=== PATIENT | female | born 1995 | race Caucasian/White ===

== ENCOUNTER 2020-03-06 10:43 | Inpatient (IN) | payer BC ==
[2020-03-06 11:40] LABS: APPEARANCE,URINE SLIGHTLY-CLOUDY; BILIRUBIN,URINE NEGATIVE (NEGATIVE); COLOR,URINE YELLOW; GLUCOSE, URINE NEGATIVE (NEGATIVE); KETONES,URINE NEGATIVE (NEGATIVE); LEUKOCYTE ESTERASE,URINE SMALL (NEGATIVE); NITRITE,URINE NEGATIVE (NEGATIVE); PROTEIN,URINE 100 mg/dL (NEGATIVE); URINE SPECIFIC GRAVITY 1.016; UROBILINOGEN,URINE NEGATIVE mg/dL (<2.0)
[2020-03-06 12:12] LABS: URINE PROTEIN 17.8 mg/dL (<12)
[2020-03-06 12:12] LABS: URINE AMPHETAMINES SCREEN NEGATIVE; URINE BARBITURATES SCREEN NEGATIVE; URINE BENZODIAZEPINES SCREEN NEGATIVE; URINE COCAINE SCREEN NEGATIVE; URINE MARIJUANA (THC) SCREEN NEGATIVE; URINE METHADONE SCREEN NEGATIVE; URINE PHENCYCLIDINE SCREEN NEGATIVE
[2020-03-06 12:14] LABS: 24 HOUR URINE PROTEIN RESULT 420 mg/day (42-225)
[2020-03-06] MEDS ORDERED: OXYTOCIN 10 UNIT/ML VIAL ONE (14:10)
[2020-03-06] MEDS ORDERED: MISOPROSTOL 0.2 MG TABLET ONE (14:10)
[2020-03-06] MEDS ORDERED: LIDOCAINE 1% INJ-PF (10 MG/ML) 30 ML SDV ONE (14:10)
[2020-03-06] MEDS ORDERED: DINOPROSTONE 10 MG VAGINAL INSERT.SR ONE (14:11)
[2020-03-06] MEDS ORDERED: OXYTOCIN/0.9 % SODIUM CHLORIDE 30 UNIT/500 ML RTUINJ ONE (14:11)
[2020-03-06] MEDS ORDERED: DINOPROSTONE 10 MG VAGINAL INSERT.SR PV PRN (14:14)
[2020-03-06] MEDS: RINGERS SOLUTION,LACTATED 1,000 ML IV PRN (14:26)
[2020-03-06 14:54] LABS: ABSOLUTE LYMPHOCYTES (AUTO) 1.6 10^3/uL (0.5-4.7); ABSOLUTE MONOCYTES (AUTO) 0.7 10^3/uL (0.1-1.4); ABSOLUTE NEUT (AUTO) 6.7 10^3/uL (1.7-8.2); BASOPHILS % (AUTO) 0.3 % (0-2); EOSINOPHILS % (AUTO) 0.3 % (0-6); HEMATOCRIT 35.5 % (36.0-47.0); HEMOGLOBIN 12.5 g/dL (12.0-15.5); LYMPHOCYTES % (AUTO) 17.8 % (13-45); MEAN CORPUSCULAR HEMOGLOBIN 31.1 pg (27.0-33.4); MEAN CORPUSCULAR HGB CONC 35.3 g/dL (32.0-36.0); MEAN CORPUSCULAR VOLUME 88 fl (80-97); MONOCYTES % (AUTO) 7.5 % (3-13); PLATELET COUNT 183 10^3/uL (150-450); RED BLOOD COUNT 4.03 10^6/uL (3.72-5.28); RED CELL DISTRIBUTION WIDTH 13.2 % (11.5-14.0); SEGMENTED NEUTROPHILS % (AUTO) 74.1 % (42-78); TOTAL CELLS COUNTED % (AUTO) 100 %; WHITE BLOOD COUNT 9.1 10^3/uL (4.0-10.5)
--- NOTE | 2020-03-06 15:01 | Admission Physical ---
Datetime Report Generated by CPN: 03/06/2020 15:00 CURRENT ADMISSION Hx Assessment: The History has been Reviewed and is Current Chief Complaint: Sent from OB Office for Evaluation and Treatment - Please Specify Indication for Induction: PreEclampsia Admit Impression : Term, Intrauterine ; No Active Labor; Induction of Labor Admit Plan: Initiate Labor Induction Protocol ALLERGIES Medication Allergies: No Medication Allergies: No Known Allergies (03/06/2020) Latex: No Latex Allergies OBSTETRICAL HISTORY EDC: 03/15/2020 00:00 : 1 Para: 0 Term: 0 : 0 SAB: 0 IAB: 0 Ectopic: 0 Livin Cesareans: 0 VBACs: 0 Multiple Births: 0 Gestational Diabetes: No Rh Sensitization: No Incompetent Cervix: No FLAVIO: No Infertility: No ART Treatment: No Uterine Anomaly: No IUGR: No Hx Previous C/S: No Macrosomia: No Hx Loss/Stillborn: No PIH: No Hx : No Placenta Previa/Abruption: No Depression/PP Depression: No PTL/PROM: No Post Hemorrhage: No Current Procedures: Ultrasound SEE RECORDS Alcohol: No Marijuana : No Cocaine: No Other Illicit Drugs: No Cigarettes: Never Smoker. [id number] MEDICAL HISTORY Diabetes: Yes Diabetes Type: Gestational Diabetes Blood Transfusion: No Pulmonary Disease (Asthma, TB): No Breast Disease: No Hypertension: Yes Vice President Of Recruiting Surgery: No Heart Disease: No Hosp/Surgery: No Autoimmune Disorder: No Anesthetic Complications: No Kidney Disease: No Abnormal Pap Smear: No Neuro/Epilepsy: No Psychiatric Disorders: No Other Medical Diseases: No Hepatitis/Liver Disease: No Significant Family History: No Varicosities/Phlebitis: No Trauma/Violence : No Thyroid Dysfunction: No INFECTIOUS HISTORY Gonorrhea: No Genital Herpes: No Chlamydia: No Tuberculosis: No Syphilis: No Hepatitis: No HIV/AIDS Exposure: No Rash or Viral Illness: No HPV: No PHYSICAL EXAM General: Normal Neurologic: Normal Heart: Normal Lungs: Normal Abdomen: Normal Extremities: Normal Pelvic Type: Adequate Vital Signs: Reviewed Details Vital Signs: normal-severe range while in unit VAGINAL EXAM Dilatation: 1 Effacement: 50 Station: -2 Contraction Comments: rare MEMBRANES Membranes: Intact FETUS A EGA: 38.5 Monitoring: External US FHR Category: Category I Presentation: Vertex Admit Comment: 24yo G1 @ 38w5d into L_D for 24h urine return which was resulted and found to be 420g and now meets criteria for IOL secondary to pre-eclampsia. BPs mild to severe range while in unit denies any other s/s of pre-e, except for headache this am. Pt is A pos, Rubella Immune, GBS positive. also complicated by obesity (BMI 34 at NOB), excessive weight gain and gestational diabetes on oral hypoglicemic (glyburide 5mg qhs). Pt with hx of anxiety/depression and on lexapro at this time. Denies h/s ideation. Reviewed with Dr. Cancino who is the OB director of business continuity today who requests IOL with cervidil at this time. PLANS FOR LABOR AND DELIVERY Labor and Delivery: None Pain Management: Epidural Feeding Preference: Breast Benefit of Breast Feed Discussed: Yes Circumcision: N/A INFORMED CONSENT Assignment: Katelyn Cancino MD Signature: with User ID: Jamel : with User ID: [email or web address]
[2020-03-06 16:42] LABS: ALKALINE PHOSPHATASE 125 U/L (38-126); ANION GAP 7 (5-19); ASPARTATE AMINO TRANSFERASE 38 U/L (14-36); BILIRUBIN,DIRECT 0.2 mg/dL (0.0-0.4); BILIRUBIN,TOTAL 0.5 mg/dL (0.2-1.3); BLOOD UREA NITROGEN 8 mg/dL (7-20); CALCIUM 8.9 mg/dL (8.4-10.2); CARBON DIOXIDE 20 mmol/L (22-30); CHLORIDE 106 mmol/L (98-107); GLUCOSE 105 mg/dL (75-110); POTASSIUM 4.2 mmol/L (3.6-5.0); TOTAL PROTEIN 5.6 g/dL (6.3-8.2); URIC ACID 4.7 mg/dL (2.5-6.2)
[2020-03-06] MEDS ORDERED: ZOLPIDEM TARTRATE 5 MG TABLET PO ONE (20:10)
[2020-03-06] MEDS ORDERED: ZOLPIDEM TARTRATE 5 MG TABLET ONE (20:12)
[2020-03-06] MEDS ORDERED: MAG HYDROX/AL HYDROX/SIMETH SUSP 30 ML UDCUP ONE (23:06)
[2020-03-06] MEDS ORDERED: MAG HYDROX/AL HYDROX/SIMETH SUSP 30 ML UDCUP PO ONE (23:07)
[2020-03-07] MEDS ORDERED: PENICILLIN G POTASSIUM 5,000,000 UNIT in DEXTROSE 5%-WATER 100 ML IV ONE (02:00)
[2020-03-07] MEDS ORDERED: PENICILLIN G-K 5 MILLION UNIT VIAL ONE (04:07)
[2020-03-07] MEDS ORDERED: MAG HYDROX/AL HYDROX/SIMETH SUSP 30 ML UDCUP PO PRN (07:45)
[2020-03-07] MEDS ORDERED: MAG HYDROX/AL HYDROX/SIMETH SUSP 30 ML UDCUP ONE (07:47)
[2020-03-07] MEDS: PENICILLIN G POTASSIUM 2,500,000 UNIT in DEXTROSE 5%-WATER 50 ML IV SCH ×5 (09:12→22:14)
[2020-03-07] MEDS ORDERED: PROMETHAZINE HCL INJ 25 MG/1 ML VIAL ONE (09:29)
[2020-03-07] MEDS ORDERED: NALBUPHINE HCL INJ 10 MG/1 ML AMPULE ONE (09:29)
[2020-03-07] MEDS ORDERED: FENTANYL/BUPIVACAINE/NS/PF 300 MCG/150 ML RTUINJ EPI ONE (13:28)
[2020-03-07] MEDS ORDERED: EPHEDRINE SULFATE INJ 50 MG/1 ML AMPULE ONE (13:28)
[2020-03-07] MEDS ORDERED: ROPIVACAINE HCL 0.2% INJ/PF (2 MG/ML) 20 ML SDV ONE (13:28)
[2020-03-07] MEDS: RINGERS SOLUTION,LACTATED 1,000 ML IV PRN (14:45)
[2020-03-07] MEDS ORDERED: LABETALOL HCL INJ 20 MG/4 ML DISP.SYRIN IV ONE ×2 (15:39→15:44)
[2020-03-07] MEDS ORDERED: MAGNESIUM SULFATE INJ 8 MEQ/2 ML IV ONE (15:40)
[2020-03-07] MEDS ORDERED: MAGNESIUM SULFATE PF/INJ 40 MEQ/10 ML SDV IV ONE (15:41)
[2020-03-07] MEDS ORDERED: MAGNESIUM SULFATE 4 GM/100 ML RTUPB IV ONE ×2 (15:44→16:06)
[2020-03-07] MEDS ORDERED: MAGNESIUM SULFATE 0 GM/0 ML RTUINJ IV ONE (15:44)
[2020-03-07] MEDS ORDERED: MAGNESIUM SULFATE 20 GM/500 ML RTUINJ IV PRN (16:06)
[2020-03-07] MEDS ORDERED: FENTANYL CITRATE INJ/PF 100 MCG/2 ML AMPUL ONE (16:10)
[2020-03-07] MEDS ORDERED: LABETALOL HCL 200 MG TABLET ONE (18:14)
[2020-03-07] MEDS: LABETALOL HCL 200 MG TABLET PO SCH (18:17)
[2020-03-07] MEDS ORDERED: MAGNESIUM SULFATE 20 GM/500 ML RTUINJ IV ONE (18:22)
[2020-03-07 18:57] LABS: HEMATOCRIT 35.7 % (36.0-47.0); HEMOGLOBIN 12.4 g/dL (12.0-15.5); MEAN CORPUSCULAR HEMOGLOBIN 30.7 pg (27.0-33.4); MEAN CORPUSCULAR HGB CONC 34.8 g/dL (32.0-36.0); MEAN CORPUSCULAR VOLUME 88 fl (80-97); PLATELET COUNT 177 10^3/uL (150-450); RED BLOOD COUNT 4.05 10^6/uL (3.72-5.28); RED CELL DISTRIBUTION WIDTH 12.9 % (11.5-14.0)
[2020-03-07 19:07] LABS: WHITE BLOOD COUNT 18.3 10^3/uL (4.0-10.5)
[2020-03-07 19:18] LABS: ABSOLUTE LYMPHOCYTES# (MANUAL) 0.4 10^3/uL (0.5-4.7); ABSOLUTE MONOCYTES # (MANUAL) 0.5 10^3/uL (0.1-1.4); BASOPHILS % (MANUAL) 0 % (0-2); EOSINOPHILS % (MANUAL) 0 % (0-6); LYMPHOCYTES % (MANUAL) 2 % (13-45); MONOCYTES % (MANUAL) 3 % (3-13); SEGMENTED NEUTROPHILS % (MAN) 95 % (42-78); TOTAL CELLS COUNTED 100
[2020-03-07 19:19] LABS: ALBUMIN 3.1 g/dL (3.5-5.0); ALKALINE PHOSPHATASE 136 U/L (38-126); ANION GAP 7 (5-19); ASPARTATE AMINO TRANSFERASE 32 U/L (14-36); BILIRUBIN,DIRECT 0.2 mg/dL (0.0-0.4); BILIRUBIN,TOTAL 0.5 mg/dL (0.2-1.3); BLOOD UREA NITROGEN 7 mg/dL (7-20); CALCIUM 8.9 mg/dL (8.4-10.2); CARBON DIOXIDE 20 mmol/L (22-30); CHLORIDE 106 mmol/L (98-107); GLUCOSE 112 mg/dL (75-110); POTASSIUM 4.3 mmol/L (3.6-5.0); TOTAL PROTEIN 5.8 g/dL (6.3-8.2); URIC ACID 4.4 mg/dL (2.5-6.2)
[2020-03-07 19:20] LABS: TEAR DROP CELLS SLIGHT
[2020-03-07 19:21] LABS: PLATELET COMMENT ADEQUATE
[2020-03-07] MEDS ORDERED: CALCIUM CARBONATE 500 MG TAB.CHEW PO ONE (23:10)
[2020-03-08] MEDS ORDERED: LABETALOL HCL 200 MG TABLET ONE ×3 (02:17→19:26)
[2020-03-08] MEDS ORDERED: FENTANYL/BUPIVACAINE/NS/PF 300 MCG/150 ML RTUINJ EPI ONE (02:48)
[2020-03-08] MEDS ORDERED: MAGNESIUM SULFATE 20 GM/500 ML RTUINJ IV ONE (02:55)
[2020-03-08] MEDS ORDERED: OXYTOCIN/0.9 % SODIUM CHLORIDE 30 UNIT/500 ML RTUINJ ONE (03:40)
[2020-03-08] MEDS ORDERED: ACETAMINOPHEN WITH CODEINE #3 TABLET PO ONE (05:07)
[2020-03-08] MEDS ORDERED: METHYLERGONOVINE MALEATE 0.2 MG TABLET ONE ×4 (05:13→23:39)
[2020-03-08] MEDS ORDERED: ACETAMINOPHEN WITH CODEINE #3 TABLET ONE (05:13)
[2020-03-08] MEDS: METHYLERGONOVINE MALEATE 0.2 MG TABLET PO SCH ×4 (05:17→23:43)
--- NOTE | 2020-03-08 05:32 | Birth Certificate Data ---
Cert Data Datetime Report Generated by CPN: 03/08/2020 05:32 CERTIFICATE DATA 47a. Care: Yes (03/06/2020 11:14:Autumn Lawson RN) 47b. Date of First Visit: 07/28/2019 00:00 (03/06/2020 11:14:Autumn Lawson RN) 47c. Date of Last Visit: 03/05/2020 00:00 (03/06/2020 11:14:Autumn Lawson RN) 48a. Number of Prev Live Births: 0 (03/06/2020 11:14:Autumn Lawson RN) 48b. Now Livin (03/06/2020 11:14:Autumn Lawson RN) 48c. Live Births Now : 0 (03/06/2020 11:14: system process) 48e. Losses: 0 (03/06/2020 11:14:Autumn Lawson RN) RISK FACTORS IN THIS 49a. Diabetes: Yes (03/06/2020 11:14:Autumn Lawson RN) Type of Diabetes: Gestational Diabetes (03/06/2020 11:14:Autumn Lawson RN) 49b. Hypertension: Yes (03/06/2020 11:14:Autumn Lawson RN) Type of Hypertension: Gestational (PIH, Pre-eclampsia) (03/06/2020 11:14:Autumn Lawson RN) 49c. Previous Births: 0 (03/06/2020 11:14:Autumn Lawson RN) 49d. Stillborns: No (03/06/2020 11:14:Autumn Lawson RN) 49d. IUGR: No (03/06/2020 11:14:Autumn Lawson RN) 49e. Infertility Treatment: No (03/06/2020 11:14:Autumn Lawson RN) 49f. Previous Cesareans: 0 (03/06/2020 11:14:Autumn Lawson RN) Mother's Height 50b. Height Inches: 67 (03/06/2020 11:06:QS system process) Mother's Weight 51b. Weight at Delivery (lbs): 260 (03/06/2020 11:06:QS system process) Infections Present/Treated 53a. Gonorrhea: No (03/06/2020 11:14:Autumn Lawson RN) Results this Hospital Visit : Negative (03/06/2020 11:14:Autumn Lawson RN) 53b. Syphilis: No (03/06/2020 11:14:Autumn Lawson RN) 53c. Chlamydia: No (03/06/2020 11:14:Autumn Lawson RN) Results this Hospital Visit: Negative (03/06/2020 11:14:Autumn Lawson RN) 53d. Hepatitis B: No (03/06/2020 11:14:Autumn Lawson RN) Results this Hospital Visit: Negative (03/06/2020 11:14:Autumn Lawson RN) 53e. Hepatitis C: Negative (03/06/2020 11:14:Autumn Lawson RN) 53h. Mother Tested for HBsAG: Yes (03/06/2020 11:14:Autumn Lawson RN) 53i. Date Tested: 07/28/2019 00:00 (03/06/2020 11:14:Autumn Lawson RN) 53j. Test Result: Negative (03/06/2020 11:14:Autumn Lawson RN) Obstetric Procedures 54a, b, c. Obstetric Procedures: Ultrasound (03/06/2020 11:14:Autumn Lawson RN) Cigarette Smoking 55a. 3 Months Before Preg - Ci (03/06/2020 11:14:Autumn Lawson RN) 55b. 1st Trimester of Preg- Ci (03/06/2020 11:14:Autumn Lawson RN) 55c. 2nd Trimester of Preg- Ci (03/06/2020 11:14:Autumn Lawson RN) 55d. 3rd Trimester of Preg- Ci (03/06/2020 11:14:Autumn Lawson RN) Onset of Labor 56a. PROM >12 Hrs: 18.47 (03/06/2020 11:14:QS system process) 56b. Precipitous Labor <3 Hrs: 8 (03/06/2020 11:14:QS system process) 56c. Prolonged Labor > 20 Hrs: 8 (03/06/2020 11:14:QS system process) 57a. Induction of Labor: Induction (03/06/2020 11:14:Lucy Pretty RN) 57a. Induction of Labor: Cervidil (03/06/2020 14:27:Jammie Leyva RN) 57c. Non-Vertex Presentation A: Vertex (03/06/2020 11:14:Lucy Pretty RN) 57d. Steroids - Lung Mat: None (03/06/2020 11:14:Lucy Pretty RN) 57d. Steroids - Lung Mat: Not Applicable (03/06/2020 11:14:Lucy Pretty RN) 57e. Antibiotics During Labor: 03/08/2020 02:44 (03/06/2020 11:14:Lucy Pretty RN) 57g. Moderate/Heavy Meconium: Clear (03/07/2020 09:26:Vashti Aguila RN) 57h. Intolerance of Labor: N/A (03/06/2020 11:14:Lucy Pretty RN) : N/A (03/06/2020 11:14:Lucy Pretty RN) Method of Delivery 58a. Forceps - Unsuccessful A: N/A (03/06/2020 11:14:Cat Roque RN) 58b. Vacuum - Unsuccessful A: N/A (03/06/2020 11:14:Cat Roque RN) 58c. Presentation at 58c. Presentation at - A : Vertex (03/06/2020 11:14:Lucy Pretty RN) 58c. Presentation at - A : N/A (03/06/2020 11:14:Lucy Pretty RN) 58c. Presentation at - A : Cephalic (03/06/2020 11:14:Lucy Pretty RN) Final Route and Method of Del 58d. Baby A Route/Delivery: Vaginal (03/08/2020 03:54:Lucy Pretty RN) 58e. Trial of Labor Attempted: No (03/06/2020 11:14:Lucy Pretty RN) 58e. Trial of Labor Attempted A: N/A (03/06/2020 11:14:Lucy Pretty RN) 58e. Trial of Labor Attempted B: N/A (03/06/2020 11:14:Lucy Pretty RN) Maternal Morbidity 59b. 3rd or 4th Degree Lacs: Perineal (03/06/2020 11:14:Lucy Pretty RN) 59b. 3rd or 4th Degree Lacs: right labial with repair (03/06/2020 11:14:Lucy Pretty RN) Birthweight Baby A: 3540 (03/06/2020 11:14:Lucy Pretty RN) 60a. Pounds : 7 (03/06/2020 11:14:QS system process) 60b. Ounces: 13 (03/06/2020 11:14:QS system process) 61. GA at Delivery Baby A: 39.0 (03/06/2020 11:14:Lucy Pretty RN) : Full Term- 39- 40.6 Weeks (03/06/2020 11:14:QS system process) 62a. 5 Minute Baby A: 9 (03/06/2020 11:14:QS system process)
--- NOTE | 2020-03-08 05:32 | Delivery Summary ---
Del Sum A-C Datetime Report Generated by CPN: 03/08/2020 05:32 DELIVERY PERSONNEL DELIVERY PERSONNEL: [id number] Delivery Doctor:: Rhona Michelle MD Labor and Delivery Nurse:: Lucy Pretty RN Nursery Nurse:: Jammie Ryan RN Loss Prevention Leader/RESOURCE EFFICIENCY MANAGER: DaishaST Eva Loss Prevention Leader/RESOURCE EFFICIENCY MANAGER: Miri Calderon, INSTRUCTOR OF SPANISH MATERNAL INFORMATION Delivery Anesthesia: Epidural Medications After Delivery: Pitocin 30 Units in 500ml NS/D5W Delivery QBL: 450 Maternal Complications: None LABOR SUMMARY EDC: 03/15/2020 00:00 No. Babies in Womb: 1 Attempted: No LABOR INFORMATION Reason for Induction: Pre-Eclampsia; Maternal Diabetes Onset of Labor: 03/07/2020 19:25 Complete Dilatation: 03/08/2020 03:11 Cervical Ripening Agents: Cervidil Oxytocin: Induction Group B Beta Strep: positive Antibiotics # of Doses: 5 Antibiotics Time of Last Dose: 03/08/2020 02:44 Name of Antibiotic Given: penicillin G Steroids Given: None Reason Steroids Not Administered: Not Applicable MEMBRANES Membranes Rupture Method: Artificial Rupture of Membranes: 03/07/2020 09:26 Length of Rupture (hr): 18.47 Amniotic Fluid Color: Clear Amniotic Fluid Amount: Moderate Amniotic Fluid Odor: Normal STAGES OF LABOR Stage 1 hr: 7 Stage 1 min: 46 Stage 2 hr: 0 Stage 2 min: 43 Stage 3 hr: 0 Stage 3 min: 13 Total Time in Labor hr: 8 Total Time in Labor min: 42 VAGINAL DELIVERY Episiotomy: None Laceration #1: Perineal Laceration Extension #1: Second Degree Other Laceration: right labial with repair Laceration Repair: Yes Sponge Count Correct: Yes; Vaginal Sweep Performed Sharps Count Correct: Yes CSECTION DELIVERY Primary Indication: N/A Secondary Indication: N/A CSection Incidence: N/A Labor: N/A Elective: N/A CSection Incision: N/A BABY A INFORMATION Infant Delivery Date/Time: 03/08/2020 03:54 Method of Delivery: Vaginal Nurse Controlled Delivery: No Born in Route : No : N/A Forceps: N/A Vacuum Extraction: N/A Shoulder Dystocia : No PRESENTATION/POSITION BABY A Presentation: Cephalic Cephalic Presentation: Vertex Vertex Position: Left Occipital Anterior Breech Presentation: N/A PLACENTA INFORMATION BABY A Placenta Delivery Time : 03/08/2020 04:07 Placenta Method of Delivery: Spontaneous Placenta Status: Delivered SCORES BABY A Heart Rate 1 min: >100 bpm Resp Effort 1 min: Good Cry Reflex Irritability 1 min: Cough or Sneeze or Pulls Away Muscle Tone 1 min: Active Motion Color 1 min: Blue/Pale Resuscitation Effort 1 min: Tactile Stimulation SCORE 1 MIN: 8 Heart Rate 5 min: >100 bpm Resp Effort 5 min: Good Cry Reflex Irritability 5 min: Cough or Sneeze or Pulls Away Muscle Tone 5 min: Active Motion Color 5 min: Body [place], Extremities Blue SCORE 5 MIN: 9 INFANT INFORMATION BABY A Gestational Age at Delivery: 39.0 Gestational Status: Full Term- 39- 40.6 Weeks Outcome : Liveborn Condition : Stable Infant Sex: Female IDENTIFICATION BABY A Infant Verification Date/Time: 03/08/2020 05:30 ID Band Number: [id number] Mother's Name Verified: Yes Infant RN Verifying Infant: Efra Pretty, RN and PinkyStefani Jassonburke, RN WEIGHT/LENGTH BABY A Birthweight (gm): 3540 Weight (lb): 7 Weight (oz): 13 Infant Length (in): 19.75 Infant Length (cm): 50.17 CORD INFORMATION BABY A No. Cord Vessels: 3 Nuchal Cord : N/A Cord Blood Taken: Yes-For Storage (Mom's Blood type +) Infant Suction: Mouth; Nose ASSESSMENT BABY A Skin to Skin: Yes BABY B INFORMATION : N/A
[2020-03-08] MEDS: LABETALOL HCL 200 MG TABLET PO SCH ×3 (06:07→20:37)
[2020-03-08] MEDS: PENICILLIN G POTASSIUM 2,500,000 UNIT in DEXTROSE 5%-WATER 50 ML IV SCH ×2 (06:07→07:22)
[2020-03-08] MEDS ORDERED: IBUPROFEN 800 MG TABLET PO ONE (09:44)
[2020-03-08] MEDS ORDERED: IBUPROFEN 800 MG TABLET ONE (09:48)
--- NOTE | 2020-03-08 10:12 | PDOC PROGRESS REPORT ---
Subjective-OB Progress Note for:: 03/08/20 - PP Day #1, pt on Magnessium Sulfate 2 gm/hour. Doing well, is in the room assisting w/ . Pt denies headache, blurred vision, epigastric pain. A+ blood type Physical Exam (OB) Vital Signs: Intake & Output 03/07/20 03/08/20 03/09/20 06:59 06:59 06:59 Intake Total 1000 Balance 1000 Weight 117.9 kg - General General Appearance: Appears well, Alert In distress: None - Maternal Morbidity 59. Maternal Morbidity (serious complications experinced by the mother associated with labor and delivery: None of the above - Abdomen Fundal Height: u/u - u/2 - Respiratory Respiratory Status: No respiratory distress - Abdominal Distension: No distension Tenderness: Nontender - Genitourinary Genitourinary Note: reina cath in place, draining clear radha urine - Extremities Upper extremity: Edema Lower extremities: Edema - 3+ - Neurological Cognition: Normal Orientation: AAOx4 - DTR 2 + - Psychological Associated symptoms: Normal affect, Normal mood - Skin Skin Temperature: Warm Skin Moisture: Dry Objective-Diagnostic Laboratory: 03/07/20 18:35 03/07/20 18:35 03/07/20 03/07/20 18:35 18:35 WBC 18.3 H D RBC 4.05 Hgb 12.4 Hct 35.7 L MCV 88 MCH 30.7 MCHC 34.8 RDW 12.9 Plt Count 177 Seg Neutrophils % Not Reportable Sodium 133.1 L Potassium 4.3 Chloride 106 Carbon Dioxide 20 L Anion Gap 7 BUN 7 Creatinine 0.40 L Est GFR ( Amer) > 60 Glucose 112 H Uric Acid 4.4 Calcium 8.9 Total Bilirubin 0.5 AST 32 Alkaline Phosphatase 136 H Total Protein 5.8 L Albumin 3.1 L Assessment and Plan(PN) - Assessment and Plan (1) Pre-eclampsia Qualifiers: Trimester: unspecified trimester Qualified Code(s): O14.90 - Unspecified pre-eclampsia, unspecified trimester Is this a current diagnosis for this admission?: Yes (2) (normal spontaneous vaginal delivery) Is this a current diagnosis for this admission?: Yes (3) Gestational diabetes mellitus (GDM) controlled on oral hypoglycemic drug Qualifiers: Trimester: third trimester Qualified Code(s): O24.415 - Gestational diabetes mellitus in , controlled by oral hypoglycemic drugs Is this a current diagnosis for this admission?: Yes (4) Qualifiers: Weeks of gestation: 39 weeks Qualified Code(s): Z3A.39 - 39 weeks gestation of Is this a current diagnosis for this admission?: Yes Plan:: Pt to remain on Magnesium Sulfate for at least 12-24 hours post . Will then transfer to PP floor. - Time Spent with Patient Time with patient: Less than 15 minutes Medications reviewed and adjusted accordingly: Yes - Disposition Anticipated Discharge Disposition: Home, Self Care Anticipated Discharge Timeframe: within 48 hours
[2020-03-08] MEDS ORDERED: OXYCODONE-ACETAMINOPHEN 5-325 MG TABLET PO PRN ×2 (22:37)
[2020-03-08] MEDS ORDERED: DIPH/PERTUSS(ACELL)/TETANUS VAC/PF 0.5 ML SYR (>=10YO) IM PRN (22:44)
[2020-03-08] MEDS ORDERED: MEASLES,MUMPS&RUBELLA VACC/PF 0.5 ML VIAL SUBCUT PRN (22:44)
[2020-03-08] MEDS ORDERED: PROMETHAZINE HCL 25 MG SUPP.RECT PR PRN (22:44)
[2020-03-08] MEDS ORDERED: NA PHOS,M-B/NA PHOS,DI-BA (ADULT) 133 ML ENEMA PR PRN (22:44)
[2020-03-08] MEDS ORDERED: ZOLPIDEM TARTRATE 5 MG TABLET PO PRN (22:44)
[2020-03-08] MEDS ORDERED: DIBUCAINE 1% OINTMENT 28 GM TP PRN (22:44)
[2020-03-08] MEDS ORDERED: ACETAMINOPHEN 325 MG TABLET PO PRN (22:44)
[2020-03-08] MEDS ORDERED: MAGNESIUM HYDROXIDE SUSP 30 ML UDCUP PO PRN (22:44)
[2020-03-08] MEDS ORDERED: PROMETHAZINE HCL INJ 25 MG/1 ML VIAL IV PRN (22:44)
[2020-03-08] MEDS ORDERED: GLYCERIN/WITCH HAZEL LEAF 1 EACH MED..WIPE TP PRN (22:44)
[2020-03-08] MEDS ORDERED: ACETAMINOPHEN WITH CODEINE #3 TABLET PO PRN ×2 (22:44)
[2020-03-08] MEDS ORDERED: PROMETHAZINE HCL 25 MG TABLET PO PRN (22:44)
[2020-03-08] MEDS ORDERED: DIPHENHYDRAMINE HCL 25 MG CAPSULE PO PRN (22:44)
[2020-03-08] MEDS ORDERED: PSEUDOEPHEDRINE HCL 30 MG TABLET PO PRN (22:44)
[2020-03-08] MEDS: FAMOTIDINE 20 MG TABLET PO SCH (23:44)
[2020-03-09] MEDS: LABETALOL HCL 200 MG TABLET PO SCH ×3 (02:12→18:22)
[2020-03-09] MEDS: BENZOCAINE/MENTHOL AEROSOL SPRAY 56 ML TOP PRN (02:13)
[2020-03-09] MEDS ORDERED: METHYLERGONOVINE MALEATE 0.2 MG TABLET ONE ×2 (05:09→13:08)
[2020-03-09] MEDS: IBUPROFEN 800 MG TABLET PO SCH ×3 (05:18→21:10)
[2020-03-09] MEDS: METHYLERGONOVINE MALEATE 0.2 MG TABLET PO SCH ×2 (05:19→13:15)
[2020-03-09 07:37] LABS: MEAN CORPUSCULAR HEMOGLOBIN 30.8 pg (27.0-33.4); MEAN CORPUSCULAR HGB CONC 34.4 g/dL (32.0-36.0); MEAN CORPUSCULAR VOLUME 89 fl (80-97); PLATELET COUNT 167 10^3/uL (150-450); RED BLOOD COUNT 3.36 10^6/uL (3.72-5.28); RED CELL DISTRIBUTION WIDTH 13.4 % (11.5-14.0); WHITE BLOOD COUNT 14.2 10^3/uL (4.0-10.5)
[2020-03-09 07:49] LABS: HEMOGLOBIN 10.3 g/dL (12.0-15.5)
[2020-03-09] MEDS: SENNOSIDES/DOCUSATE 8.6-50 MG 1 EACH TABLET PO SCH (09:21)
[2020-03-09] MEDS: PRENATAL VITAMIN W DHA CAPSULE PO SCH (09:21)
[2020-03-09] MEDS: FERROUS SULFATE 325 MG TABLET PO SCH ×2 (09:22→18:22)
[2020-03-09] MEDS: DOCUSATE SODIUM 100 MG CAPSULE PO SCH ×2 (09:22→18:22)
[2020-03-09] MEDS: FAMOTIDINE 20 MG TABLET PO SCH ×2 (09:22→21:10)
--- NOTE | 2020-03-09 12:19 | PDOC PROGRESS REPORT ---
Subjective-OB Progress Note for:: 03/09/20 - PP day #1, pt doing well, denies headache, UOB, voiding. s/p Magnessium sulfate for pre-eclampsia. A+ Rubella immune, Physical Exam (OB) Vital Signs: Temp Pulse Resp BP Pulse Ox 97.8 F 78 17 118/60 96 03/09/20 11:07 03/09/20 11:07 03/09/20 11:07 03/09/20 11:07 03/09/20 11:07 - General General Appearance: Appears well, Alert In distress: None - PIH/Pre-Eclampsia DTR's: 2 + Clonus: Negative Headache: Absent Epigastric Pain: No Visual Changes: No - Maternal Morbidity 59. Maternal Morbidity (serious complications experinced by the mother associated with labor and delivery: None of the above - Lochia Lochia Amount: Scant < 10 ml Lochia Color: Rubra/Red - Abdomen Description: Soft Hernia Present: No Fundal Description: Firm, Midline Fundal Height: u/3 - u/4 - Respiratory Respiratory Status: No respiratory distress - Abdominal Distension: No distension Tenderness: Nontender - Genitourinary Genitourinary Note: voiding - Extremities Upper extremity: Normal inspection Lower extremities: Normal inspection - Neurological Cognition: Normal Orientation: AAOx4 - Psychological Associated symptoms: Normal affect, Normal mood - Skin Skin Temperature: Warm Skin Moisture: Dry Objective-Diagnostic Laboratory: 03/09/20 07:30 03/07/20 18:35 03/09/20 07:30 WBC 14.2 H RBC 3.36 L Hgb 10.3 L D Hct 30.0 L MCV 89 MCH 30.8 MCHC 34.4 RDW 13.4 Plt Count 167 Assessment and Plan(PN) - Assessment and Plan (1) Pre-eclampsia Qualifiers: Trimester: unspecified trimester Qualified Code(s): O14.90 - Unspecified pre-eclampsia, unspecified trimester Is this a current diagnosis for this admission?: Yes (2) (normal spontaneous vaginal delivery) Is this a current diagnosis for this admission?: Yes (3) Gestational diabetes mellitus (GDM) controlled on oral hypoglycemic drug Qualifiers: Trimester: third trimester Qualified Code(s): O24.415 - Gestational diabetes mellitus in , controlled by oral hypoglycemic drugs Is this a current diagnosis for this admission?: Yes (4) Qualifiers: Weeks of gestation: 39 weeks Qualified Code(s): Z3A.39 - 39 weeks gestation of Is this a current diagnosis for this admission?: Yes Plan:: ambulation encouraged, Routine PP orders, watch BP - Time Spent with Patient Time with patient: Less than 15 minutes Medications reviewed and adjusted accordingly: Yes - Disposition Anticipated Discharge Disposition: Home, Self Care Anticipated Discharge Timeframe: within 24 hours
[2020-03-10] MEDS: LABETALOL HCL 200 MG TABLET PO SCH ×2 (02:46→10:36)
[2020-03-10] MEDS: IBUPROFEN 800 MG TABLET PO SCH (06:31)
--- NOTE | 2020-03-10 10:15 | PDOC DISCHARGE SUMMARY ---
Impression - Admit/DC Date/PCP Admission Date/Primary Care Provider: 03/06/20 13:43 ESTEBAN PRIDE MD Discharge Date: 03/10/20 - PP day #2, doing well, denies headache, blurred vision. IOL d/t Pre-eclampsia, had been on Magnessium Sulfate. A+, rubella Immune, - Discharge Diagnosis (1) Pre-eclampsia Is this a current diagnosis for this admission?: Yes (2) (normal spontaneous vaginal delivery) Is this a current diagnosis for this admission?: Yes (3) Gestational diabetes mellitus (GDM) controlled on oral hypoglycemic drug Is this a current diagnosis for this admission?: Yes (4) Is this a current diagnosis for this admission?: Yes - Additional Information Resuscitation Status: Full Code Discharge Diet: As Tolerated, Regular Discharge Activity: Activity As Tolerated, No Lifting Over 10 Pounds, Pelvic Rest Referrals: ESTEBAN PRIDE MD [Primary Care Provider] - Prescriptions: Ibuprofen [Motrin 800 mg Tablet] 800 mg PO Q8 #60 tablet Labetalol HCl [Normodyne 200 mg Tablet] 200 mg PO Q8A 30 Days #84 tablet Home Medications: Ibuprofen [Motrin 800 mg Tablet] 800 mg PO Q8 #60 tablet 03/10/20 Labetalol HCl [Normodyne 200 mg Tablet] 200 mg PO Q8A 30 Days #84 tablet 03/10/20 Vit/Dha [ Multi + Dha Capsule] 1 cap PO DAILY capsule 03/10/20 HPI Reason(s) for Admission: Induction of Labor Admission Note: pre-eclampsia w/ GDM Procedures: NST, Ultrasound Intrapartum Procedure(s): Spontaneous Vaginal Delivery Complication(s): Laceration-Labial Laceration-Degree: 2nd Hospital Course 59. Maternal Morbidity (serious complications experinced by the mother associated with labor and delivery: None of the above Results Laboratory Results: WBC 14.2 10^3/uL (4.0-10.5) H 03/09/20 07:30 RBC 3.36 10^6/uL (3.72-5.28) L 03/09/20 07:30 Hgb 10.3 g/dL (12.0-15.5) L D 03/09/20 07:30 Hct 30.0 % (36.0-47.0) L 03/09/20 07:30 MCV 89 fl (80-97) 03/09/20 07:30 MCH 30.8 pg (27.0-33.4) 03/09/20 07:30 MCHC 34.4 g/dL (32.0-36.0) 03/09/20 07:30 RDW 13.4 % (11.5-14.0) 03/09/20 07:30 Plt Count 167 10^3/uL (150-450) 03/09/20 07:30 Lymph % (Auto) Not Reportable 03/07/20 18:35 [place] % (Auto) Not Reportable 03/07/20 18:35 Eos % (Auto) Not Reportable 03/07/20 18:35 Baso % (Auto) Not Reportable 03/07/20 18:35 Absolute Neuts (auto) Not Reportable 03/07/20 18:35 Absolute Lymphs (auto) Not Reportable 03/07/20 18:35 Absolute Monos (auto) Not Reportable 03/07/20 18:35 Absolute Eos (auto) Not Reportable 03/07/20 18:35 Absolute Basos (auto) Not Reportable 03/07/20 18:35 Total Counted 100 03/07/20 18:35 Seg Neutrophils % Not Reportable 03/07/20 18:35 Seg Neuts % (Manual) 95 % (42-78) H 03/07/20 18:35 Lymphocytes % (Manual) 2 % (13-45) L 03/07/20 18:35 Monocytes % (Manual) 3 % (3-13) 03/07/20 18:35 Eosinophils % (Manual) 0 % (0-6) 03/07/20 18:35 Basophils % (Manual) 0 % (0-2) 03/07/20 18:35 Abs Neuts (Manual) 17.4 10^3/uL (1.7-8.2) H 03/07/20 18:35 Abs Lymphs (Manual) 0.4 10^3/uL (0.5-4.7) L 03/07/20 18:35 Abs Monocytes (Manual) 0.5 10^3/uL (0.1-1.4) 03/07/20 18:35 Absolute Eos (Manual) 0.0 10^3/uL (0.0-0.6) 03/07/20 18:35 Abs Basophils (Manual) 0.0 10^3/uL (0.0-0.2) 03/07/20 18:35 Platelet Comment ADEQUATE 03/07/20 18:35 Tear Drop Cells SLIGHT 03/07/20 18:35 Sodium 133.1 mmol/L (137-145) L 03/07/20 18:35 Potassium 4.3 mmol/L (3.6-5.0) 03/07/20 18:35 Chloride 106 mmol/L (98-107) 03/07/20 18:35 Carbon Dioxide 20 mmol/L (22-30) L 03/07/20 18:35 Anion Gap 7 (5-19) 03/07/20 18:35 BUN 7 mg/dL (7-20) 03/07/20 18:35 Creatinine 0.40 mg/dL (0.52-1.25) L 03/07/20 18:35 Est GFR ( Amer) > 60 (>60) 03/07/20 18:35 Est GFR (MDRD) Non-Af > 60 (>60) 03/07/20 18:35 Glucose 112 mg/dL (75-110) H 03/07/20 18:35 Uric Acid 4.4 mg/dL (2.5-6.2) 03/07/20 18:35 Calcium 8.9 mg/dL (8.4-10.2) 03/07/20 18:35 Total Bilirubin 0.5 mg/dL (0.2-1.3) 03/07/20 18:35 Direct Bilirubin 0.2 mg/dL (0.0-0.4) 03/07/20 18:35 Neonat Total Bilirubin Not Reportable 03/07/20 18:35 Neonat Direct Bilirubin Not Reportable 03/07/20 18:35 Neonat Indirect Bili Not Reportable 03/07/20 18:35 AST 32 U/L (14-36) 03/07/20 18:35 ALT 20 U/L (<35) 03/07/20 18:35 Alkaline Phosphatase 136 U/L (38-126) H 03/07/20 18:35 Lactate Dehydrogenase 200 U/L (120-246) 03/07/20 18:35 Total Protein 5.8 g/dL (6.3-8.2) L 03/07/20 18:35 Albumin 3.1 g/dL (3.5-5.0) L 03/07/20 18:35 Urine Color YELLOW 03/06/20 11:00 Urine Appearance SLIGHTLY-CLOUDY 03/06/20 11:00 Urine pH 6.0 (5.0-9.0) 03/06/20 11:00 Ur Specific [place] 1.016 03/06/20 11:00 Urine Protein 100 mg/dL (NEGATIVE) H 03/06/20 11:00 Urine Glucose (UA) NEGATIVE mg/dL (NEGATIVE) 03/06/20 11:00 Urine Ketones NEGATIVE mg/dL (NEGATIVE) 03/06/20 11:00 Urine Blood NEGATIVE (NEGATIVE) 03/06/20 11:00 Urine Nitrite NEGATIVE (NEGATIVE) 03/06/20 11:00 Urine Bilirubin NEGATIVE (NEGATIVE) 03/06/20 11:00 Urine Urobilinogen NEGATIVE mg/dL (<2.0) 03/06/20 11:00 Ur Leukocyte Esterase SMALL (NEGATIVE) H 03/06/20 11:00 Ur 24 Hour Volume 2360 mL 03/06/20 10:00 Ur Total Protein 24 Hr 420 mg/day (42-225) H 03/06/20 10:00 Urine Total Protein 17.8 mg/dL (<12) H 03/06/20 10:00 Urine Ascorbic Acid NEGATIVE (NEGATIVE) 03/06/20 11:00 Urine Opiates Screen NEGATIVE 03/06/20 11:00 Urine Methadone Screen NEGATIVE 03/06/20 11:00 Ur Barbiturates Screen NEGATIVE 03/06/20 11:00 Ur Phencyclidine Scrn NEGATIVE 03/06/20 11:00 Ur Amphetamines Screen NEGATIVE 03/06/20 11:00 U Benzodiazepines Scrn NEGATIVE 03/06/20 11:00 Urine Cocaine Screen NEGATIVE 03/06/20 11:00 U Marijuana (THC) Screen NEGATIVE 03/06/20 11:00 Blood Type A POSITIVE 03/06/20 14:36 Antibody Screen NEGATIVE 03/06/20 14:36 Plan Health Concerns: watch BP, precautions reviewed Plan of Treatment: d/c home. F/up with [facility] in one week for BP check Time Spent: Less than 30 Minutes
[2020-03-10] MEDS: PRENATAL VITAMIN W DHA CAPSULE PO SCH (10:34)
[2020-03-10] MEDS: FAMOTIDINE 20 MG TABLET PO SCH (10:35)
[2020-03-10] MEDS: FERROUS SULFATE 325 MG TABLET PO SCH (10:35)
[2020-03-10] MEDS: SENNOSIDES/DOCUSATE 8.6-50 MG 1 EACH TABLET PO SCH (10:35)
[2020-03-10] MEDS: DOCUSATE SODIUM 100 MG CAPSULE PO SCH (10:35)
[2020-03-10] MEDS: BENZOCAINE/MENTHOL AEROSOL SPRAY 56 ML TOP PRN (12:15)
[2020-03-10 13:15] VITALS: BP 137/85
== END 2020-03-10 13:40 | disposition home or self-care (01) | DRG 807 ==
LOC: LC 10:43 → LR 13:43 → 2S 03-08 17:23
PROVIDERS: ADMIT Obstetrics & Gynecology; ATTEND Obstetrics & Gynecology
PROC: 10E0XZZ Delivery of Products of Conception, External Approach (ICD-10-PCS; principal; 2020-03-08)
PROC: 0KQM0ZZ Repair Perineum Muscle, Open Approach (ICD-10-PCS; 2020-03-08)
DX: O14.04 Mild to moderate pre-eclampsia, complicating childbirth (principal); Z37.0 Single live birth; O24.425 Gestational diabetes mellitus in childbirth, controlled by oral hypoglycemic drugs; O99.214 Obesity complicating childbirth; E66.9 Obesity, unspecified; O99.824 Streptococcus B carrier state complicating childbirth; O70.1 Second degree perineal laceration during delivery; Z3A.39 39 weeks gestation of pregnancy
CPT/HCPCS: 1967; 36415; 80053; 80307; 81005; 83615; 84156; 84550; 85025; 85027; 86850; 86900; 86901; 88307; 94760; J2300; J2540; J2550; J2590; J2795; J3010; J3475; J3490; J7060